=== PATIENT | male | born 1970 | race African-American/Black ===

== ENCOUNTER 2017-06-01 09:55 | Outpatient (RCR) | payer BC ==
[2017-06-01 10:19] LABS: BASOPHILS % (AUTO) 0 % (0-10); EOSINOPHILS # (AUTO) 0.1 10^3/uL (0.0-0.3); EOSINOPHILS % (AUTO) 2 % (0-10); HEMATOCRIT 37 % (40-54); LYMPHOCYTES # (AUTO) 0.9 X 10^3 (1.0-4.0); LYMPHOCYTES % (AUTO) 36 % (12-44); MEAN CORPUSCULAR HEMOGLOBIN 25 PG (25-34); MEAN CORPUSCULAR HGB CONC 33 G/DL (32-36); MEAN CORPUSCULAR VOLUME 76 FL (80-99); MEAN PLATELET VOLUME 9.1 FL (7.4-10.4); MONOCYTES # (AUTO) 0.4 X 10^3 (0.0-1.0); MONOCYTES % (AUTO) 13 % (0-12); NEUTROPHILS # (AUTO) 1.3 X 10^3 (1.8-7.8); NEUTROPHILS % (AUTO) 48 % (42-75); PLATELET COUNT 120 10^3/uL (130-400); RED BLOOD COUNT 4.82 10^6/uL (4.35-5.85); RED CELL DISTRIBUTION WIDTH 13.6 % (10.0-14.5); WHITE BLOOD COUNT 2.6 10^3/uL (4.3-11.0)
[2017-06-01 10:36] LABS: ALANINE AMINOTRANSFERASE 29 U/L (0-55); ALBUMIN 4.3 GM/DL (3.2-4.5); ALKALINE PHOSPHATASE 67 U/L (40-136); BILIRUBIN,TOTAL 0.4 MG/DL (0.1-1.0); BUN/CREATININE RATIO 13; CALCIUM 9.4 MG/DL (8.5-10.1); CARBON DIOXIDE 28 MMOL/L (21-32); CHLORIDE 99 MMOL/L (98-107); CREATININE SERUM 1.09 MG/DL (0.60-1.30); GFR ESTIMATED > 60; GLUCOSE 139 MG/DL (70-105); POTASSIUM 4.2 MMOL/L (3.6-5.0); SODIUM 137 MMOL/L (135-145); TOTAL PROTEIN 7.5 GM/DL (6.4-8.2)
== END 2017-08-30 | disposition home or self-care (01) ==
LOC: ONC 09:55
PROVIDERS: ATTEND Internal Medicine Hematology & Oncology
DX: D61.818 Other pancytopenia (principal); Z79.899 Other long term (current) drug therapy
CPT/HCPCS: 36415; 80053; 85025; 99213

== ENCOUNTER 2018-07-19 09:42 | Outpatient (RCR) | payer BC ==
[2018-07-19 09:58] LABS: BASOPHILS % (AUTO) 1 % (0-10); EOSINOPHILS % (AUTO) 2 % (0-10); HEMATOCRIT 37 % (40-54); HEMOGLOBIN 11.8 G/DL (13.3-17.7); LYMPHOCYTES # (AUTO) 1.1 X 10^3 (1.0-4.0); LYMPHOCYTES % (AUTO) 47 % (12-44); MEAN CORPUSCULAR HEMOGLOBIN 25 PG (25-34); MEAN CORPUSCULAR HGB CONC 32 G/DL (32-36); MEAN CORPUSCULAR VOLUME 77 FL (80-99); MONOCYTES # (AUTO) 0.4 X 10^3 (0.0-1.0); MONOCYTES % (AUTO) 18 % (0-12); NEUTROPHILS # (AUTO) 0.8 X 10^3 (1.8-7.8); NEUTROPHILS % (AUTO) 33 % (42-75); PLATELET COUNT 137 10^3/uL (130-400); RED CELL DISTRIBUTION WIDTH 13.5 % (10.0-14.5); WHITE BLOOD COUNT 2.3 10^3/uL (4.3-11.0)
[2018-07-19 10:23] LABS: ALANINE AMINOTRANSFERASE 28 U/L (0-55); ALBUMIN 4.5 GM/DL (3.2-4.5); ALKALINE PHOSPHATASE 71 U/L (40-136); BILIRUBIN,TOTAL 0.3 MG/DL (0.1-1.0); BUN/CREATININE RATIO 12; CALCIUM 9.4 MG/DL (8.5-10.1); CARBON DIOXIDE 28 MMOL/L (21-32); CHLORIDE 100 MMOL/L (98-107); CREATININE SERUM 1.06 MG/DL (0.60-1.30); GFR ESTIMATED > 60; GLUCOSE 165 MG/DL (70-105); POTASSIUM 4.1 MMOL/L (3.6-5.0); SODIUM 136 MMOL/L (135-145)
== END 2018-10-17 | disposition home or self-care (01) ==
LOC: ONC 09:42
PROVIDERS: ATTEND Internal Medicine Hematology & Oncology
DX: D61.818 Other pancytopenia (principal); Z79.899 Other long term (current) drug therapy
CPT/HCPCS: 36415; 80053; 83615; 85025; 99213

== ENCOUNTER → 2018-11-02 | Outpatient (CLI) | payer BC ==
--- NOTE | 2018-11-02 16:16 | Diagnostic Imaging Report ---
INDICATION: Chronic neck pain. EXAMINATION: Cervical spine. FINDINGS: AP and lateral views of the cervical spine show normal vertebral body height and alignment. The disc spaces are fairly well maintained. There are small osteophytes forming anteriorly at C4-5, C5-6, and C6-7. There is no fracture. IMPRESSION: Mild spondylosis of the lower cervical spine. No acute abnormality is seen. Dictated by: Dictated on workstation # [id number]
--- NOTE | 2018-11-02 16:19 | Diagnostic Imaging Report ---
INDICATION: Back pain. EXAMINATION: Lumbar spine. FINDINGS: AP, lateral, and oblique views of the lumbar spine show normal vertebral body height and alignment. The disc spaces are normal. There are no pars defects. IMPRESSION: Negative lumbar spine. Dictated by: Dictated on workstation # [id number]
== END ==
LOC: RAD 14:59
PROVIDERS: ATTEND Nurse Practitioner Family
DX: M47.812 Spondylosis without myelopathy or radiculopathy, cervical region (principal); M54.5 Low back pain
CPT/HCPCS: 72040; 72110

== ENCOUNTER 2021-04-14 23:39 | Emergency (ER) | payer BC ==
[~2021-04-14] VITALS: Ht 180 cm; Wt 90.7 kg
[2021-04-15 00:52] LABS: BASOPHILS % (AUTO) 1 % (0-10); EOSINOPHILS % (AUTO) 1 % (0-10); HEMATOCRIT 37 % (40-54); HEMOGLOBIN 11.7 g/dL (13.3-17.7); LYMPHOCYTES # (AUTO) 1.4 10^3/uL (1.0-4.0); LYMPHOCYTES % (AUTO) 36 % (12-44); MEAN CORPUSCULAR HEMOGLOBIN 25 pg (25-34); MEAN CORPUSCULAR HGB CONC 32 g/dL (32-36); MEAN CORPUSCULAR VOLUME 77 fL (80-99); MEAN PLATELET VOLUME 9.2 fL (9.0-12.2); MONOCYTES # (AUTO) 0.5 10^3/uL (0.0-1.0); MONOCYTES % (AUTO) 14 % (0-12); NEUTROPHILS # (AUTO) 1.9 10^3/uL (1.8-7.8); NEUTROPHILS % (AUTO) 49 % (42-75); PLATELET COUNT 127 10^3/uL (130-400); WHITE BLOOD COUNT 3.9 10^3/uL (4.3-11.0)
[2021-04-15] MEDS ORDERED: TETANUS,DIPTH,PERTUSS P/F (BOOSTRIX) 0.5 ML VIAL IM ONE (01:00)
--- NOTE | 2021-04-15 01:06 | ED Upper Extremity ---
General Chief Complaint: Upper Extremity Stated Complaint: POSS SPIDER BITE ON RT ELBOW Nursing Triage Note: PT AMB TO RM 6 W REPORTS OF POSS SPIDER BITE TO RIGHT ELBOW X3 DAYS. PT ELBOW VERY SWOLLEN AND WARM. PT REPORTS HE DRAINED IT LAST NIGHT AND GOT CLEAR LIQUID OUT. PT DENIES PAIN BUT SAYS ITS SORE TO THE TOUCH, GETTING INCREASINGLY MORE PAINFUL. Source: patient History of Present Illness Date Seen by Provider: Apr 15, 2021 Time Seen by Provider: 00:20 Allergies and Home Medications Allergies Coded Allergies: shellfish derived (Verified Allergy, Unknown, 04/15/21) Patient Home Medication List Cephalexin (Cephalexin) 500 Mg Tablet, 500 MG PO QID Prescribed by: YANY BRAND on 04/15/21 010 Naproxen (Naproxen) 500 Mg Tablet.dr, 500 MG PO BID Prescribed by: YANY BRAND on 04/15/21 0117 Past Mwtvwuj-Tumesi-Rfxokl Hx Patient Social History Tobacco Use?: No Smoking Status: Never a Smoker Use of E-Cig and/or Vaping dev: No Substance use?: No Alcohol Use?: No Immunizations Up To Date First/Initial COVID19 Vaccinat: 01/25/2021 Second COVID19 Vaccination [place]: 02/25/2021 COVID19 Vaccine Powder Core Tester: MODERNFran Physical Exam Vital Signs Vital Signs - First Documented 04/14/21 23:55 Temp 36.7 Pulse 93 Resp 18 B/P (MAP) 144/93 (110) Pulse Ox 97 O2 Delivery Room Air Capillary Refill : Less Than 3 Seconds Height, Weight, BMI Height: '" Weight: lbs. oz. kg; 27.00 BMI Method: Progress/Results/Core Measures Results/Orders Lab Results Laboratory Tests Test 04/15/21 00:45 Range/Units White Blood Count 3.9 L 4.3-11.0 10^3/uL Red Blood Count 4.74 4.30-5.52 10^6/uL Hemoglobin 11.7 L 13.3-17.7 g/dL Hematocrit 37 L 40-54 % Mean Corpuscular Volume 77 L 80-99 fL Mean Corpuscular Hemoglobin 25 25-34 pg Mean Corpuscular Hemoglobin Concent 32 32-36 g/dL Red Cell Distribution Width 13.0 10.0-14.5 % Platelet Count 127 L 130-400 10^3/uL Mean Platelet Volume 9.2 9.0-12.2 fL Immature Granulocyte % (Auto) 0 % Neutrophils (%) (Auto) 49 42-75 % Lymphocytes (%) (Auto) 36 12-44 % Monocytes (%) (Auto) 14 H 0-12 % Eosinophils (%) (Auto) 1 0-10 % Basophils (%) (Auto) 1 0-10 % Neutrophils # (Auto) 1.9 1.8-7.8 10^3/uL Lymphocytes # (Auto) 1.4 1.0-4.0 10^3/uL Monocytes # (Auto) 0.5 0.0-1.0 10^3/uL Eosinophils # (Auto) 0.0 0.0-0.3 10^3/uL Basophils # (Auto) 0.0 0.0-0.1 10^3/uL Immature Granulocyte # (Auto) 0.0 0.0-0.1 10^3/uL Sodium Level 137 135-145 MMOL/L Potassium Level 4.0 3.6-5.0 MMOL/L Chloride Level 101 98-107 MMOL/L Carbon Dioxide Level 25 21-32 MMOL/L Anion Gap 11 5-14 MMOL/L Blood Urea Nitrogen 15 7-18 MG/DL Creatinine 1.27 0.60-1.30 MG/DL Estimat Glomerular Filtration Rate 73 BUN/Creatinine Ratio 12 Glucose Level 153 H 70-105 MG/DL Uric Acid 5.2 2.6-7.2 MG/DL Calcium Level 9.6 8.5-10.1 MG/DL C-Reactive Protein High Sensitivity 0.56 H 0.00-0.50 MG/DL My Orders Orders - YANY BRAND DO Basic Metabolic Panel (04/15/21 00:30) Cbc With Automated Diff (04/15/21 00:30) Erythrocyte Sedimentation Rate (04/15/21 00:30) Uric Acid (04/15/21 00:30) Hs C Reactive Protein (04/15/21 00:30) Elbow, Right, 3 Views (04/15/21 00:36) Dipht,Pertuss(Acell),Tet Adult (Boostrix (04/15/21 01:00) Rx-Cephalexin Capsule (Rx-Keflex Capsule (04/15/21 01:12) Rx-Naproxen (Rx-Naprosyn) (04/15/21 01:16) Vital Signs/I&O 04/14/21 23:55 Temp 36.7 Pulse 93 Resp 18 B/P (MAP) 144/93 (110) Pulse Ox 97 O2 Delivery Room Air Blood Pressure Mean: 110 Departure Impression Primary Impression: Olecranon bursitis, right elbow Additional Impressions: POSSIBLE CELLULITIS RIGHT ELBOW Lpfsczseub-neiiaohqx-gpplazl (DPT) vaccination administered at current visit NIDDM Disposition: HOME, SELF-CARE Condition: Stable Departure-Patient Inst. Decision time for Depature: 01:18 Referrals: KEYUR MAHAN MD, RICK D MD (PCP/Family) Primary Care Physician Patient Instructions: Cellulitis (Skin Infection), Adult (DC), Diphtheria and Tetanus Toxoids, and Acellular Pertussis Vaccine, Olecranon Bursitis (DC) Add. Discharge Instructions: ALTERNATE ICE AND HEAT TO AREA AT 20 MINUTE INTERVALS TYLENOL NEEDED FOR PAIN FOLLOW UP WITH DR. MAHAN, ORTHOPEDIC SURGEON IN 1-2 DAYS FOR FURTHER CARE, CALL IN AM FOR APPOINTMENT All discharge instructions reviewed with patient and/or family. Voiced understanding. Scripts Naproxen (Naproxen) 500 Mg Tablet. 500 MG PO BID, #20 TAB Prov: YANY BRAND DO 04/15/21 Cephalexin (Cephalexin) 500 Mg Tablet 500 MG PO QID, #30 TAB 0 Refills Prov: YANY BRAND DO 04/15/21 YANY BRAND DO Apr 15, 2021 01:06
[2021-04-15] MEDS ORDERED: CEPH500T PO (01:07)
[2021-04-15 01:09] LABS: CALCIUM 9.6 MG/DL (8.5-10.1)
[2021-04-15] MEDS ORDERED: RX-CEPHALEXIN (KEFLEX) 250 MG CAP PPK#4 PO STA (01:12)
[2021-04-15 01:14] LABS: CREATININE SERUM 1.27 MG/DL (0.60-1.30)
[2021-04-15 01:16] LABS: URIC ACID 5.2 MG/DL (2.6-7.2)
[2021-04-15] MEDS ORDERED: RX-NAPROXEN (NAPROSYN) 250 MG TAB PPK#4 PO STA (01:16)
[2021-04-15] MEDS ORDERED: NAPR500T8 PO (01:17)
[2021-04-15 01:22] LABS: ERYTHROCYTE SEDIMENTATION RATE 11 MM/HR (0-30)
[2021-04-15 01:39] VITALS: BP 144/93
--- NOTE | 2021-04-15 06:25 | Diagnostic Imaging Report ---
Reason for examination: Elbow pain. 3 views of the right elbow demonstrate no fracture or dislocation. There is soft tissue swelling overlying the olecranon process. No elbow joint effusion. No soft tissue mass or radiopaque foreign body. IMPRESSION: 1. No acute fracture of the right elbow. 2. Soft tissue swelling overlying the olecranon process. Consider olecranon bursitis or possibly cellulitis. Dictated by: Dictated on workstation # [id number]
== END 2021-04-15 01:40 | disposition home or self-care (01) ==
LOC: EDUNIT# 23:39 → ER 23:44
DX: M70.21 Olecranon bursitis, right elbow (principal); E11.9 Type 2 diabetes mellitus without complications; Z23 Encounter for immunization
CPT/HCPCS: 36415; 73080; 80048; 84550; 85025; 85652; 86141; 90715; 99283

== ENCOUNTER 2022-07-10 12:49 | Outpatient (CLI) | payer BC ==
[~2022-07-10] VITALS: Ht 177.8 cm; Wt 88.9 kg
[~2022-07-10 12:49] MED LIST: CEPH500T PO; NAPR500T8 PO
[2022-07-10] MEDS ORDERED: OXYC20TA3 PO (15:18)
[2022-07-10] MEDS ORDERED: LISI10TA25 PO (15:18)
[2022-07-10] MEDS ORDERED: METF-399 PO (15:18)
== END 2022-07-10 15:27 | disposition home or self-care (01) ==
LOC: PREOP 12:49
PROVIDERS: ATTEND Internal Medicine
DX: Z01.818 Encounter for other preprocedural examination (principal)

== ENCOUNTER 2022-08-08 09:04 | Day surgery (SDC) | payer BC ==
--- NOTE | 2022-07-10 14:49 | HISTORY AND PHYSICAL ---
DATE OF SERVICE: 07/18/2022 HISTORY OF PRESENT ILLNESS: The patient is a 52-year-old black male who I saw for initial office visit. He had a past history of severe diverticulitis with sepsis 25 years ago for which he underwent diverting colostomy with removal of portion of the sigmoid colon. He then underwent colostomy takedown as he recalls 6 months or so later. He had undergone colonoscopy at that time 25 years ago with no subsequent procedures. He does not recall if any polyps were noted at that time. He denies bright red blood per rectum, abdominal pain, constipation or change in bowel habit. PAST MEDICAL HISTORY: Significant for type 2 diabetes, hypertension and chronic low back pain that he thinks is likely football injury related. He had been previously seeing Dr. Ramon and for the past 3-4 years, has been on oxycodone. While he had been given the 30 mg dose, he was taking a half a tablet 4 times a day with reasonable pain control. He denies any radicular symptoms. Mostly, it is the low back pain as well as mid thoracic back pain. This actually has been more problematic for him than the low back pain. FAMILY HISTORY: Father in March secondary to the cancer that started in his mediastinum. He states it was a rare cancer, metastasized to his brain. He was 77 years of age, it was not reportedly lung cancer. Mother is living at the age of 76 with diabetes, hypertension and osteoarthritis. He has one-half brother with type 2 diabetes. There is no family history for GI tract malignancy that he is aware of. SOCIAL HISTORY: He mows yards in the summertime, had been caring for his father the last year. He had a past history of heavy drinking, but has not consumed any alcohol for the last 10 years. He has no past smoking history. PHYSICAL EXAMINATION: GENERAL: Reveals a black male who appears to be in no acute distress. Weight 196 pounds, blood pressure 116/80. HEENT: Unremarkable. Sclerae nonicteric. Oral cavity reveals a Mallampati 4 configuration. Good dentition. No exudate. NECK: Revealed no JVD, adenopathy or bruits. CHEST: Clear to auscultation. CARDIOVASCULAR: Reveals a regular rate and rhythm without murmur, S3, or S4. ABDOMEN: Soft, without mass, organomegaly, or tenderness. Well-healed midline abdominal scar from the umbilicus to the pubis symphysis and two presumed drainage incisions noted, well healed. EXTREMITIES: Reveal no cyanosis, clubbing or edema. No sores or callus formation noted. ADDITIONAL HISTORY: The patient had eye evaluation 2 weeks ago and has had no evidence for diabetic retinopathy. ASSESSMENT AND PLAN: 1. The patient is being set up for screening colonoscopy deemed to be of average risk. Prep instructions were given and questions were answered. 2. Type 2 diabetes. A1c was obtained with a chemistry panel, CBC, lipid panel, and screening PSA. 3. Hyperlipidemia, on statin therapy. 4. Hypertension, appears to be under good control. Continue current medication. We will see him back in 4 months with a BMP and A1c. Job ID: [id number] DocumentID: [id number] Dictated Date: 07/10/2022 11:53:52 Preforms Laminator Date: 07/10/2022 13:17:00 Dictated By: AYSE SHAFER MD MTDD
[~2022-08-08] VITALS: Ht 177.8 cm; Wt 88.9 kg
[~2022-08-08 09:04] MED LIST changes: +LISI10TA25 PO; +METF-399 PO; +OXYC20TA3 PO
[2022-08-08] MEDS ORDERED: LACTATED RINGERS 1,000 ML IV STA (09:14)
--- NOTE | 2022-08-08 09:21 | Pre-Op Note & Conscious Sedat ---
Pre-Operative Progress Note Date H&P Reviewed: Aug 08, 2022 Time H&P Reviewed: 09:20 History & Physical: H&P Reviewed, Patient Examed, No changes noted Pre-Op Diagnosis: screening Conscious Sedation Pre-Proced ASA Score 2 For ASA 3 and 4: Consider anesthesia and medical clearance. Also, for patients with a history of failed moderate sedation consider anesthesia. Airway Lungs Heart ASA score ASA 1: a normal healthy patient ASA 2: a patient with a mild systemic disease (mid diabetes, controlled hypertension, obesity ASA 3: a patient with a severe systemic disease that limits activity (angina, COPD, prior Myocardial infarction) ASA 4: a patient with an incapacitating disease that is a constant threat to life (CHF, renal failure) ASA 5: a moribund patient not expected to survive 24 hrs. (ruptured aneurysm) ASA 6: a declared brain- patient whose organs are being harvested. For emergent operations, add the letter E after the classification Mallampati Classification Grade 1 Sedation Plan Analgesia, Amnesia, Plan communicated to team members, Discussed options with patient/fam, Discussed risks with patient/fam The patient is an appropriate candidate to undergo the planned procedure, sedation, and anesthesia. The patient immediately re-assessed prior to indication. AYSE SHAFER MD Aug 08, 2022 09:21
[2022-08-08 09:27] VITALS: BP 126/88
[2022-08-08] MEDS ORDERED: PROPOFOL INJECTION 50 ML IV ONE (10:44)
--- NOTE | 2022-08-08 11:09 | Anesthesia-General Post-Op ---
MAC Patient Condition Mental Status/LOC: Same as Preop Cardiovascular: Satisfactory Nausea/Vomiting: Absent Respiratory: Satisfactory Pain: Controlled Complications: Absent Post Op Complications Complications None Follow Up Care/Instructions Patient Instructions None needed. Anesthesiology Discharge Order Discharge Order Patient is doing well, no complaints, stable vital signs, no apparent adverse anesthesia problems. No complications reported per nursing. GAGE NICHOLS CRNA Aug 08, 2022 11:09
[2022-08-08 11:12] VITALS: BP 92/54
--- NOTE | 2022-08-08 11:14 | Progress Note-Post Operative ---
Post-Procedure Note Physician (s)/Geological Technical Officer (s) Physician AYSE SHAFER MD Pre-Procedure Diagnosis Pre-Procedure Diagnosis: screening Post-Procedure Diagnosis Post-operative diagnosis: Prior to undergoing colonoscopy digital rectal evaluation was performed. Anal sphincter tone was normal and the perianal reflexes intact. No abnormalities are noted on digital inspection of the anal canal or distal rectal vault. Prostate is normal in size and a nodular on digital inspection. The colonoscope was then inserted into the rectum and under direct visualization advanced to the cecum. The cecum was identified by identification of the ileocecal valve and the cecal strap. Photographic documentation obtained. Careful inspection was made as the colonoscope was withdrawn. Quality the prep was good. Findings: There were no evidence for internal or external hemorrhoids. A 3 mm hyperplastic appearing polyp was noted in the mid rectum was biopsied and ablated with no subsequent blood loss. Tissue was not submitted for histopathology. The remainder the rectum sigmoid colon descending colon and splenic flexure were unremarkable. No evidence for diverticular disease was noted. A 3 mm sessile mid transverse colonic polyp was noted it was biopsied and ablated I was only able to grasp adjacent the polyp with running cautery current under the base so tissue was not submitted photograph was obtained. The remainder the transverse colon hepatic flexure and ascending colon were unremarkable. A 6 mm sessile adenomatous appearing polyp was noted on the upper lip of the ileocecal valve. It was photographed and biopsied and ablated with no subsequent blood loss. The cecum of the colon was unremarkable. A/P 1. A 6 mm sessile adenomatous appearing polyp was removed via hot forceps from the upper lip of the ileocecal valve. 2 small 3 mm sessile diminutive polyp were also biopsied and cauterized all the tissue was not submitted see above. There are locations with the mid transverse colon and mid rectum. No other abnormalities were identified today and digital evaluation the prostate was normal as well. AYSE SHAFER MD Aug 08, 2022 11:14
[2022-08-08 11:17] VITALS: BP 98/60
[2022-08-08 11:20] VITALS: BP 98/60
== END 2022-08-08 11:59 | disposition home or self-care (01) ==
LOC: ENDO 09:04
PROVIDERS: ATTEND Internal Medicine
DX: Z12.11 Encounter for screening for malignant neoplasm of colon (principal); D12.0 Benign neoplasm of cecum; K63.5 Polyp of colon; K62.1 Rectal polyp; E11.9 Type 2 diabetes mellitus without complications; E78.5 Hyperlipidemia, unspecified; I10 Essential (primary) hypertension; Z79.899 Other long term (current) drug therapy
CPT/HCPCS: 82947; 88305